=== PATIENT | male | born 1975 | race Caucasian/White ===

== ENCOUNTER 2021-02-27 00:28 | Emergency (ER) | payer OTHER, SELFPAY ==
[2021-02-27] VITALS (35 sets, daily range): BP systolic 92–124; BP diastolic 60–90; PULSE 69–162; RESP 8–22; TEMP 36.4; O2SAT 91–100; BMI 32.6
--- NOTE | 2021-02-27 00:49 | ECG_ITS ---
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 Measurements Intervals [place] Rate: 164 P: [place]: QRS: 32 QRSD: 90 T: 54 QT: 303 QTc: 501 Interpretive Statements ATRIAL FIBRILLATION WITH RAPID VENTRICULAR RESPONSE WITH ABERRANT CONDUCTION OR VENTRICULAR PREMATURE COMPLEXES MODERATE ST DEPRESSION [0.05+ mV ST DEPRESSION] No previous ECG available for comparison Electronically Signed On 02-28-2021 21:58:05 GASOLINE ATTENDANT by Israel Young M.D. [id number]
--- NOTE | 2021-02-27 00:49 | XRR_ITS ---
PROCEDURE INFORMATION: Exam: XR Chest Exam date and time: 02/27/2021 12:49 AM Age: 45 years old Clinical indication: Pain; Chest pressure; Additional info: Cp TECHNIQUE: Imaging protocol: XR of the chest. Views: 1 view. COMPARISON: MRI Thoracic Spine w/o* [id number] 03/14/2019 8:01 AM FINDINGS: Lungs: There are low lung volumes. Otherwise, the lungs are clear. Pleural spaces: Unremarkable. No pleural effusion. No pneumothorax. Heart/Mediastinum: Unremarkable. No cardiomegaly. Bones/joints: Unremarkable. XR/XR chest 1V portable [id number] IMPRESSION: There are low lung volumes. Otherwise, the lungs are clear. Radiation Dose CTDIVOL = (mGy): DLP = (mGy-cm)
[2021-02-27 01:19] LABS: Basophils % 0.5 %; Eosinophils # 0.2 10^3/uL (0.0-0.8); Eosinophils % 2.2 %; Hemoglobin 17.4 g/dL (11.7-16.6); Lymphocytes # 3.1 10^3/uL (0.8-4.8); Lymphocytes % 40.1 %; Mean Corpuscular HGB Conc 35.5 g/dL (30.0-36.0); Mean Corpuscular Hemoglobin 30.5 pg (28.0-34.0); Mean Corpuscular Volume 85.8 fl (80-94); Mean Platelet Volume 9.9 fL (7.4-10.4); Monocytes # 0.6 10^3/uL (0.2-0.9); Monocytes % 7.9 %; Neutrophils # 3.85 10^3/uL (1.8-7.7); Nucleated Red Blood Cells % 0 %; Platelet Count 263 10^3/cmm (130-400); Red Blood Count 5.71 10^6/uL (4.1-5.3); Red Cell Distribution Width 12.5 % (12.1-15.1); White Blood Count 7.8 10^3/uL (4.0-10.0)
--- NOTE | 2021-02-27 01:38 | W.ED.CHESTPA ---
HPI - Chest Pain General: Chief Complaint: Chest Pain Stated Complaint: Chest pains Time Seen by Provider: 02/27/21 00:48 History of Present Illness: HPI narrative: 45-year-old male with a history of hypertension. He had COVID-19 2 months ago, and received his first Covid 19 vaccine 2 weeks ago. Following that, he had an episode of atrial fibrillation for which she was seen at an outside facility. He converted prior to any medication being given, and was allowed home. He had chest pressure shortness of breath with that episode. He has not had any episodes until tonight. This evening he awoke from sleep again with chest pain and shortness of breath. He had some paresthesias to both upper extremities. He presents with an irregular heartbeat and a rate of 150 and above. MD complaint: chest pain Pertinent past history: other Onset (ago): hour(s) Timing of current episode: constant Prior episodes: Yes Onset: during rest and awoke with symptoms Pain location: substernal Pain radiation: right arm and left arm Severity: moderate Quality: tightness and aching Relieving factors: nothing Exacerbating factors: nothing Associated symptoms: Reports dyspnea, nausea and palpitations; Deny abdominal pain, diaphoresis, fever(s) or vomiting Treatment prior to arrival: none Review of Systems Const: Denies: fever(s) or diaphoresis Card: Reports: palpitations Resp: Reports: dyspnea GI: Reports: nausea; Denies: abdominal pain or vomiting Physical Exam Const: COMMON NORMALS: no acute distress, patient oriented x3 and alert HENMT: COMMON NORMALS: normocephalic HEAD & SCALP: normocephalic Eye: COMMON NORMALS: Equal, round and reactive pupils present PUPIL: Yes Equal, round and reactive pupils present Chest: COMMONS NORMALS: normal inspection of the chest Resp: COMMON NORMALS: normal respiratory effort, No use of accessory muscles and clear to auscultation bilaterally AUSCULTATION: clear to auscultation bilaterally Cardio: RATE: tachycardic RHYTHM: abnormal rhythm irregularly irregular GI: COMMON NORMALS: Normal to inspection, nondistended, normoactive bowel sounds present Extremity: COMMON NORMALS: no pedal edema Neuro: COMMON NORMALS: patient oriented x3 SENSORIUM/ORIENTATION: Yes alert Course Vital Signs: Vital signs: Vital Signs Temperature 97.5 F L 02/27/21 00:34 Pulse Rate 75 02/27/21 03:50 Respiratory Rate 13 02/27/21 03:50 Blood Pressure 114/77 02/27/21 03:50 Pulse Oximetry 95 02/27/21 03:50 MDM - Chest Pain MDM Narrative: Medical decision making narrative: 45-year-old male found to be in atrial fibrillation with RVR for the second time. He does have a history of hypertension. He was given a bolus of 15 mg of diltiazem with conversion to normal sinus rhythm with a normal rate. Upon, his pain resolved. He did not require further treatment. His second EKG showed a normal sinus rhythm with a normal axis, rate in the 70s, and no acute ST changes. His troponin remained 6 with a delta of 0. His other laboratory is benign. He states that the [place] has been working on getting him an appointment with a coin machine assembler. We will place a case management referral as well. He will go on a full dose of aspirin, and increase his metoprolol from 12.5 twice daily to 25 twice daily for rate control. Lab Data: Labs: Lab Results 02/27/21 02/27/21 02/27/21 01:00 01:00 01:00 WBC 7.8 10^3/uL 10^3/ uL (4.0-10.0) RBC 5.71 10^6/uL H 10 ^6/uL (4.1-5.3) Hgb 17.4 g/dL H g/dL (11.7-16.6) Hct 49.0 % % (42.0-52.0) MCV 85.8 fl fl (80-94) MCH 30.5 pg pg (28.0-34.0) MCHC 35.5 g/dL g/dL (30.0-36.0) RDW 12.5 % % (12.1-15.1) Plt Count 263 10^3/cmm 10^3 /cmm (130-400) MPV 9.9 fL fL (7.4-10.4) Neut % (Auto) 49.0 % % Lymph % (Auto) 40.1 % % [place] % (Auto) 7.9 % % Eos % (Auto) 2.2 % % Baso % (Auto) 0.5 % % Neut # (Auto) 3.85 10^3/uL 10^3 /uL (1.8-7.7) Lymph # (Auto) 3.1 10^3/uL 10^3/ uL (0.8-4.8) [place] # (Auto) 0.6 10^3/uL 10^3/ uL (0.2-0.9) Eos # (Auto) 0.2 10^3/uL 10^3/ uL (0.0-0.8) Baso # (Auto) 0.0 10^3/uL 10^3/ uL (0.0-0.1) Nucleated RBC % (a uto) 0 % % Nucleated RBCs # 0.0 /100WBC /100W BC PT 13.30 SECONDS SEC ONDS (12.1-14.9) INR 0.98 (0.8-1.2) APTT 29.1 SECONDS SECO NDS (23.9-36.7) D-Dimer <= 0.27 ug/mIFEU ug/mIFEU (0-0.59) Sodium 139 mmol/L mmol/L (136-145) Potassium 4.0 mmol/L mmol/L (3.5-5.1) Chloride 98 mmol/L mmol/L (98-107) Carbon Dioxide 23 mmol/L mmol/L (22-29) Anion Gap 22.0 H (5-19) BUN 20 mg/dL mg/dL (6-20) Creatinine 1.1 mg/dL mg/dL (0.7-1.2) GFR Calculation 73.1 mL/min L mL/ min (90-130) Glucose 90 mg/dL mg/dL (65-115) Calculated Osmolal ity 290 mOsm/kg mOsm/ kg (285-295) Calcium 9.7 mg/dL mg/dL (8.5-10.5) Magnesium 2.1 mg/dL mg/dL (1.7-2.3) Total Bilirubin 0.4 mg/dL mg/dL (0.15-1.2) AST 23 U/L U/L (0-40) ALT 37 U/L U/L (0-41) Alkaline Phosphata se 73 IU/L IU/L (40-130) Creatine Kinase 218 U/L U/L (39-308) Troponin T Baselin e Troponin T 120 Min rhiannon Delta Troponin T NT-Pro-B Natriuret Pep 20 pg/mL pg/mL (0-125) Total Protein 7.5 g/dL g/dL (6.6-8.7) Albumin 4.6 g/dL g/dL (3.5-5.2) Globulin 2.9 g/dL g/dL (1.3-4.6) TSH 2.79 uIU/mL uIU/m L (0.27-4.20) 02/27/21 02/27/21 01:00 02:43 WBC RBC Hgb Hct MCV MCH MCHC RDW Plt Count MPV Neut % (Auto) Lymph % (Auto) [place] % (Auto) Eos % (Auto) Baso % (Auto) Neut # (Auto) Lymph # (Auto) [place] # (Auto) Eos # (Auto) Baso # (Auto) Nucleated RBC % (a uto) Nucleated RBCs # PT INR APTT D-Dimer Sodium Potassium Chloride Carbon Dioxide Anion Gap BUN Creatinine GFR Calculation Glucose Calculated Osmolal ity Calcium Magnesium Total Bilirubin AST ALT Alkaline Phosphata se Creatine Kinase Troponin T Baselin e 6 ng/L ng/L (0-15) Troponin T 120 Min rhiannon 6.00 ng/L ng/L (0-15) Delta Troponin T 0 ABS# ABS# (0-10) NT-Pro-B Natriuret Pep Total Protein Albumin Globulin TSH Discharge Plan Discharge Patient Disposition: Home Clinical Impression: Atrial fibrillation Qualifiers: Atrial fibrillation type: paroxysmal Qualified Code(s): I48.0 - Paroxysmal atrial fibrillation Condition: Stable Prescriptions: New aspirin 325 mg tablet 325 mg PO DAILY Qty: 30 RF: 0 metoprolol tartrate 25 mg tablet 25 mg PO BID Qty: 60 RF: 0 Discharge Orders: Discharge ED (Routine); Ordered 02/27/21 Ordered By: Casey Alexandra Discharge Diet: Advance as tolerated Discharge Activity: Increase activity as tolerated Patient Instructions: A-fib (Atrial Fibrillation) (ED) Activity Restrictions/Additional Instructions: Return for return of palpitations, chest discomfort, shortness of breath, etc. Double your home metoprolol dose as we discussed. A case management referral has been placed for you an appointment with cardiology. If you do not hear from them by Monday afternoon call [phone] and ask for the ER pillowcase sewer. Coding Level of Care Code ED Drop Hammer Operator Helper for Chg Fwd Exam Comprehensive
[2021-02-27 01:46] LABS: INR 0.98 (0.8-1.2)
[2021-02-27 01:47] LABS: Partial Thromboplastin Time 29.1 SECONDS (23.9-36.7)
[2021-02-27 01:49] LABS: D Dimer <= 0.27 ug/mIFEU (0-0.59)
[2021-02-27 01:52] LABS: Troponin(5th) Baseline 6 ng/L (0-15)
[2021-02-27 01:56] LABS: Alanine Aminotransferase 37 U/L (0-41); Albumin Level 4.6 g/dL (3.5-5.2); Alkaline Phosphatase 73 IU/L (40-130); Aspartate Amino Transferase 23 U/L (0-40); Blood Urea Nitrogen 20 mg/dL (6-20); Calcium 9.7 mg/dL (8.5-10.5); Carbon Dioxide 23 mmol/L (22-29); Chloride 98 mmol/L (98-107); Creatine Phosphokinase 218 U/L (39-308); Globulin 2.9 g/dL (1.3-4.6); Glomerular Filtration Rate 73.1 mL/min (90-130); Glucose 90 mg/dL (65-115); Magnesium 2.1 mg/dL (1.7-2.3); NT Pro B Type Natriuretic Pept 20 pg/mL (0-125); Osmolality Calculated 290 mOsm/kg (285-295); Sodium 139 mmol/L (136-145); Thyroid Stimulating Hormone 2.79 uIU/mL (0.27-4.20); Total Bilirubin 0.4 mg/dL (0.15-1.2); Total Protein 7.5 g/dL (6.6-8.7)
--- NOTE | 2021-02-27 02:49 | ECG_ITS ---
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 Measurements Intervals [place] Rate: 81 P: 33 [place]: 169 QRS: 35 QRSD: 88 T: 43 QT: 370 QTc: 432 Interpretive Statements SINUS RHYTHM No previous ECG available for comparison Electronically Signed On 02-28-2021 22:00:33 CLINICAL STAFF EDUCATOR by Israel Young M.D. [id number]
--- NOTE | 2021-02-27 02:57 | PC.NURSE ---
Pt. states that he is feeling better and is pain free. Pt. now waiting to go home if his troponin is normal.
[2021-02-27 03:39] LABS: Troponin 5 2HR Delta 0 ABS# (0-10)
== END 2021-02-27 04:11 | disposition home or self-care (01) ==
PROVIDERS: Emergency Provider Emergency Medicine
DX: I48.0 Paroxysmal atrial fibrillation (principal)
CPT/HCPCS: 71045; 80053; 82550; 83735; 83880; 84443; 84484; 85025; 85378; 85610; 85730; 93005; 96374; 99284; J3490

== ENCOUNTER 2021-06-17 12:50 | Outpatient (CLI) | payer OTHER, SELFPAY ==
--- NOTE | 2021-06-17 13:30 | USCV_ITS ---
[place] Age: 45 Gender: M : 1975 Exam Date: 06/17/2021 13:04 Ordering Phys: Bhavana Wharton MD ([email or web address]) Technologist: DEMETRA Exam Location: [facility] [place] Indication: afib BP: 122 / 88 HR: 56 Rhythm: Sinus Technical Quality: Adequate MEASUREMENTS (Male / Female) Normal Values 2D ECHO LV Diastolic Diameter PLAX 2.9 cm 4.2 - 5.9 / 3.9 - 5.3 cm LV Systolic Diameter PLAX 1.9 cm IVS Diastolic Thickness 1.1 cm 0.6 - 1.0 / 0.6 - 0.9 cm IVS Systolic Thickness 1.1 cm LVPW Diastolic Thickness 1.6 cm 0.6 - 1.0 / 0.6 - 0.9 cm LVPW Systolic Thickness 1.5 cm LVOT Diameter 2.0 cm LV Ejection Fraction 2D Teich 64.0 % LV Ejection Fraction MOD 2C 57.3 % LV Ejection Fraction 2C AL 57.2 % LA Diameter 3.3 cm LA Width 3.6 cm LA Height 4.5 cm RA Width 2.9 cm RA Height 4.6 cm Aorta at Sinotubular Diameter 2.5 cm M-MODE Aortic Annulus Diameter 2.9 cm LA Ao Ratio MM 1.1 MV E Point Septal Separation 0.4 cm DOPPLER AV Peak Velocity 113.0 cm/s LVOT Peak Velocity 102.0 cm/s AV Area Cont Eq vti 2.7 cm squared AV Area Cont Eq pk 2.8 cm squared MV Area PHT 4.8 cm squared Mitral E to A Ratio 1.3 MV E' Velocity 39.0 cm/s Mitral E to MV E' Ratio 1.7 Mitral E to LV E' Lateral Ratio 5.5 Mitral E to LV E' Septal Ratio 1.0 TR Peak Velocity 230.0 cm/s TR Peak Gradient 21.2 mmHg TR Mean Velocity 163.0 cm/s TR Mean Gradient 10.5 mmHg TR Velocity Time Integral 48.2 cm Right Atrial Pressure 3.0 mmHg Pulmonary Artery Systolic Pressu 24.2 mmHg RV Acceleration Time 0.1 s RV Ejection Time 0.3 s RV AcT/ET 0.3 FINDINGS Left Ventricle Normal left ventricular size. LV systolic function is normal with EF of 55-60%. No regional wall motion abnormalities. Normal diastolic filling pattern. Right Ventricle The right ventricle is normal in size and function. Right Atrium The right atrium is normal in size. Left Atrium The left atrium is normal in size. Mitral Valve Structurally normal mitral valve without significant stenosis or prolapse. There is trace mitral regurgitation. Aortic Valve Structurally normal aortic valve without significant sclerosis or stenosis. There is no aortic regurgitation. Tricuspid Valve Structurally normal tricuspid valve without significant stenosis. Mild tricuspid regurgitation. Insufficient TR jet to calculate RVSP Pulmonic Valve Structurally normal pulmonic valve without significant stenosis. There is no pulmonic regurgitation. Pericardium Normal pericardium without effusion. Aorta Normal ascending aorta dimension. CONCLUSIONS LV systolic function is normal with EF of 55-60% Normal diastolic function Trace mitral regurgitation Mild tricuspid regurgitation No comparison studies are available Israel Young MD (Electronically Signed) Final Date: 26 June 2021 11:26 S
== END 2021-06-17 12:51 | disposition home or self-care (01) ==
LOC: RAD 12:52
PROVIDERS: PCP Nurse Practitioner; Visit Provider Internal Medicine Cardiovascular Disease
DX: R06.02 Shortness of breath (principal); R07.9 Chest pain, unspecified; I48.91 Unspecified atrial fibrillation; I08.1 Rheumatic disorders of both mitral and tricuspid valves
CPT/HCPCS: 93306

== ENCOUNTER → 2021-07-01 14:48 | Outpatient (BNVA) | payer OTHER, SELFPAY | PROVIDERS: PCP Nurse Practitioner; Visit Provider Internal Medicine | DX: R07.9 Chest pain, unspecified (principal); I48.0 Paroxysmal atrial fibrillation; I10 Essential (primary) hypertension | CPT/HCPCS: 99214 ==

== ENCOUNTER 2023-09-01 10:40 | Outpatient (CLI) | payer OTHER, SELFPAY ==
--- NOTE | 2023-09-01 10:44 | MR_ITS ---
WS: [id number] MRI HEAD WITHOUT CONTRAST TECHNIQUE: Sagittal T1, T2 axial, T2 axial FLAIR, axial and coronal T1 images, axial susceptibility w eighted imaging, axial diffusion weighted images, and coronal T2 images were obtained. CLINICAL INFORMATION: HEADACHES COMPARISON: None. FINDINGS: No evidence of restricted diffusion to suggest acute ischemia. Ventricular system and basilar cistern s are patent. Normal posterior fossa. Normal vascular flow voids at the skull base. No extra-axial fl uid collections. No mass or mass effect. Paranasal sinuses and mastoid air cells are well aerated. Normal posterior nasopharynx. Normal optic chiasm and pituitary infundibulum. Temporal lobes and hippocampal formations are normal in appearance. No hemosiderin on the susceptibility weighted images. MR/MR head wo con* [id number] IMPRESSION: 1. No evidence of restricted diffusion to suggest acute ischemia. 2. No suspicious intracranial signal abnormalities. 3. No hemosiderin on the susceptibly weighted imaging. 4. No other suspicious findings.
== END 2023-09-01 10:41 | disposition home or self-care (01) ==
LOC: RAD 10:40
PROVIDERS: PCP Nurse Practitioner; Visit Provider Nurse Practitioner
DX: R51.9 Headache, unspecified (principal)
CPT/HCPCS: 70551

== ENCOUNTER 2024-04-15 20:00 | Outpatient (CLI) | payer OTHER, SELFPAY | END 2024-04-15 20:01 | disposition home or self-care (01) | LOC: SLEEP 23:00 | PROVIDERS: PCP Nurse Practitioner; Visit Provider Nurse Practitioner | DX: G47.33 Obstructive sleep apnea (adult) (pediatric) (principal) | CPT/HCPCS: 95810 ==

== ENCOUNTER 2024-05-19 17:52 | Emergency (ER) | payer OTHER, SELFPAY ==
[2024-05-19 17:58] VITALS: BP 128/72; PULSE 66; RESP 16; TEMP 37; O2SAT 96; BMI 31.9
--- NOTE | 2024-05-19 18:28 | ECG_ITS ---
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
[2024-05-19 19:34] LABS: Basophils % 0.2 %; Eosinophils # 0.2 10^3/uL (0.0-0.8); Eosinophils % 2.3 %; Hematocrit 42.4 % (37-53); Lymphocytes # 2.4 10^3/uL (0.8-4.8); Lymphocytes % 29.6 %; Mean Corpuscular HGB Conc 34.4 g/dL (30-55); Mean Corpuscular Hemoglobin 29.9 pg (27-33); Mean Corpuscular Volume 86.7 fl (82-101); Mean Platelet Volume 9.2 fL (7.4-10.4); Monocytes # 0.4 10^3/uL (0.2-0.9); Monocytes % 4.6 %; Neutrophils # 5.17 10^3/uL (1.8-7.7); Neutrophils % 62.9 %; Nucleated Red Blood Cells % 0 %; Platelet Count 174 10^3/cmm (157-399); Red Blood Count 4.89 10^6/uL (3.85-5.65); Red Cell Distribution Width 13.2 % (12.1-15.1); White Blood Count 8.23 10^3/uL (3.29-11.43)
--- NOTE | 2024-05-19 19:48 | XRR_ITS ---
PROCEDURE INFORMATION: Exam: XR Chest Exam date and time: 05/19/2024 7:53 PM Age: 48 years old Clinical indication: Chest pressure; Patient HX: Chest pain TECHNIQUE: Imaging protocol: Radiologic exam of the chest. Views: 1 view. COMPARISON: CR XR chest 1V portable [id number] 02/27/2021 1:00 AM FINDINGS: Lungs: Unremarkable. No consolidation. Pleural spaces: Unremarkable. No pleural effusion. No pneumothorax. Heart/Mediastinum: Unremarkable. No cardiomegaly. Bones/joints: Unremarkable. XR/XR chest 1V portable [id number] IMPRESSION: No acute findings.
[2024-05-19 19:56] VITALS: BP 127/85; PULSE 67; RESP 22; O2SAT 99
[2024-05-19 19:57] LABS: Troponin(5th) Baseline < 6 ng/L (0-15)
--- NOTE | 2024-05-19 19:58 | W.ED.CHESTPA ---
HPI - Chest Pain General: Chief Complaint: Chest Pain Stated Complaint: chest pains Time Seen by Provider: 05/19/24 19:46 History of Present Illness: Patient is a 48-year-old male with history of hypertension, hypothyroid. Patient states that he has been having a left upper chest discomfort that has been going on approximately 2 weeks. Patient states it is in 1 spot just left of sternum. It has been coming and going over the past 2 weeks but over the past week it started kind of going up into the left shoulder. It does not go into the arm and does not go into the back. He states the past 2 days he has had what he describes as a pinch sensation. He states there is a pinch on the left chest and 1 spot and he sometimes kind of feels it into the left back. He has felt a little bit short of breath today when he has the pain. It does not typically last very long. No lightheadedness, no nausea or vomiting. No known history of cardiac issues. Patient heart rate normal, satting 96% on room air, no work of breathing, normal blood pressure Related Data Home Medications Medication Instructions Recorded Confirmed cyclobenzaprine 10 mg tablet 10 mg PO TID PRN 03/29/21 04/24/24 hydrocodone 10 mg-acetaminophen 1 tab PO Q6H PRN 03/29/21 04/24/24 325 mg tablet levothyroxine 75 mcg capsule 75 mcg PO DAILY 03/29/21 04/24/24 metoprolol tartrate 25 mg tablet 12.5 mg PO BID 03/29/21 04/24/24 multivitamin 1 tab PO DAILY 03/29/21 04/24/24 aspirin 325 mg tablet 162.5 mg PO DAILY 07/01/21 04/24/24 escitalopram oxalate 20 mg tablet 20 mg PO DAILY 07/01/21 04/24/24 (Lexapro) Previous Rx's Medication Instructions Recorded amoxicillin 500 mg capsule 500 mg PO TID #30 caps 04/24/24 Allergies Allergy/AdvReac Type Severity Reaction Status Date / Time morphine Allergy Unknown Unknown Verified 05/19/24 17:58 [facility] ED [facility]: Medical History Hyperlipidemia HTN (hypertension) Atrial fibrillation Family History Other Dementia Social History Smoking and tobacco/nicotine status: never used tobacco/nicotine Alcohol intake: never Substance/Drug Use: never Physical Exam Const: COMMON NORMALS: no acute distress, patient oriented x3 and alert GENERAL APPEARANCE: cooperative HENMT: COMMON NORMALS: normocephalic and atraumatic HEAD & SCALP: normocephalic and atraumatic Eye: COMMON NORMALS: Equal, round and reactive pupils present and EOMs intact bilaterally PUPIL: Yes Equal, round and reactive pupils present Neck/C-Spine: COMMON NORMALS: full ROM and supple Chest: COMMONS NORMALS: normal inspection of the chest Resp: COMMON NORMALS: normal respiratory effort and clear to auscultation bilaterally AUSCULTATION: clear to auscultation bilaterally Cardio: COMMON NORMALS: regular rate and regular rhythm RATE: regular rate RHYTHM: regular rhythm GI: COMMON NORMALS: Normal to inspection, nondistended, normoactive bowel sounds present and non-tender : COMMON NORMALS: Yes no CVA tenderness BLADDER/KIDNEY EXAM: Yes no CVA tenderness Back/Pelvis: COMMON NORMALS: no CVA tenderness and thoracic and lumbar spine normal to inspection Extremity: COMMON NORMALS: normal to inspection, full ROM and no pedal edema Neuro: COMMON NORMALS: patient oriented x3 and no focal motor deficits SENSORIUM/ORIENTATION: Yes alert Psych: COMMON NORMALS: cooperative Skin: COMMON NORMALS: no rashes or lesions noted GENERAL SKIN EXAM: no rashes or lesions noted Course Vital Signs: Vital signs: Vital Signs Temperature 98.6 F 05/19/24 17:58 Pulse Rate 68 05/19/24 20:49 Respiratory Rate 17 05/19/24 20:49 Blood Pressure 124/89 05/19/24 20:49 Pulse Oximetry 93 05/19/24 20:49 Oxygen Delivery Me thod Room Air 05/19/24 20:49 MDM - Chest Pain Medical Decision Making Patient has been having off-and-on minor chest discomfort for about 2 weeks. Patient having a pinching sensation and pain, shooting to the left shoulder. Patient's pain seems most consistent with a noncardiac process such as like inflammation. Patient has no family history of heart disease. Patient heart rate 60, satting 99% with normal blood pressure. Chest x-ray is clear, troponin is negative. Patient's been having pain most of today and yesterday so no benefit noted in getting a 2-hour troponin. Patient states he can call his primary doctor and follow-up. Advised that he would benefit from follow-up for possible stress testing. Have given him return precautions. Lab Data 05/19/24 18:43 05/19/24 18:43 Radiology Impressions Chest X-Ray 05/19/24 19:48 IMPRESSION: No acute findings. Laboratory Results WBC 8.23 10^3/uL (3.29-11.43) 05/19/24 18:43 RBC 4.89 10^6/uL (3.85-5.65) 05/19/24 18:43 Hgb 14.60 g/dL (11.27-16.99) 05/19/24 18:43 Hct 42.4 % (37-53) 05/19/24 18:43 MCV 86.7 fl (82-101) 05/19/24 18:43 MCH 29.9 pg (27-33) 05/19/24 18:43 MCHC 34.4 g/dL (30-55) 05/19/24 18:43 RDW 13.2 % (12.1-15.1) 05/19/24 18:43 Plt Count 174 10^3/cmm (157-399) 05/19/24 18:43 MPV 9.2 fL (7.4-10.4) 05/19/24 18:43 Neut % (Auto) 62.9 % 05/19/24 18:43 Lymph % (Auto) 29.6 % 05/19/24 18:43 [place] % (Auto) 4.6 % 05/19/24 18:43 Eos % (Auto) 2.3 % 05/19/24 18:43 Baso % (Auto) 0.2 % 05/19/24 18:43 Neut # (Auto) 5.17 10^3/uL (1.8-7.7) 05/19/24 18:43 Lymph # (Auto) 2.4 10^3/uL (0.8-4.8) 05/19/24 18:43 [place] # (Auto) 0.4 10^3/uL (0.2-0.9) 05/19/24 18:43 Eos # (Auto) 0.2 10^3/uL (0.0-0.8) 05/19/24 18:43 Baso # (Auto) 0.0 10^3/uL (0.0-0.1) 05/19/24 18:43 Nucleated RBC % (auto) 0 % 05/19/24 18:43 Nucleated RBCs # 0.0 /100WBC 05/19/24 18:43 Sodium 139 mmol/L (136-145) 05/19/24 18:43 Potassium 4.1 mmol/L (3.5-5.1) 05/19/24 18:43 Chloride 101 mmol/L (98-107) 05/19/24 18:43 Carbon Dioxide 23 mmol/L (22-29) 05/19/24 18:43 Anion Gap 19.1 (5-19) H 05/19/24 18:43 BUN 17 mg/dL (6-20) 05/19/24 18:43 Creatinine 1.1 mg/dL (0.7-1.2) 05/19/24 18:43 GFR Calculation 72.1 mL/min (90-130) L 05/19/24 18:43 Glucose 128 mg/dL (65-115) H 05/19/24 18:43 Calculated Osmolality 291 mOsm/kg (285-295) 05/19/24 18:43 Calcium 8.7 mg/dL (8.5-10.5) 05/19/24 18:43 Total Bilirubin 0.4 mg/dL (0.15-1.2) 05/19/24 18:43 AST 22 U/L (0-40) 05/19/24 18:43 ALT 26 U/L (0-41) 05/19/24 18:43 Alkaline Phosphatase 71 U/L (40-130) 05/19/24 18:43 Troponin T Baseline < 6 ng/L (0-15) 05/19/24 18:43 NT-Pro-B Natriuret Pep < 36 pg/mL (0-125) 05/19/24 18:43 Total Protein 6.5 g/dL (6.6-8.7) L 05/19/24 18:43 Albumin 4.3 g/dL (3.5-5.2) 05/19/24 18:43 Globulin 2.2 g/dL (1.3-4.6) 05/19/24 18:43 XR interpretation done by ED provider, pending radiology final review ED provider radiology interpretation(s): No acute process noted Discharge Plan Discharge Patient Disposition: Home Clinical Impression: Nonspecific chest pain Condition: Stable Prescriptions: No Action levothyroxine 75 mcg capsule 75 mcg PO DAILY hydrocodone-acetaminophen 10-325 mg tablet 1 tab PO Q6H PRN cyclobenzaprine 10 mg tablet 10 mg PO TID PRN multivitamin Tablet 1 tab PO DAILY metoprolol tartrate 25 mg tablet 12.5 mg PO BID escitalopram oxalate [Lexapro] 20 mg tablet 20 mg PO DAILY aspirin 325 mg tablet 162.5 mg PO DAILY amoxicillin 500 mg capsule 500 mg PO TID Qty: 30 0RF Discharge Orders: Discharge ED (Routine); Ordered 05/19/24 Ordered By: Lorenzo Smith Referrals: Nat Cody, PHARMACOLOGY ASSOCIATE [Primary Care Provider] - Discharge Diet: Usual diet Discharge Activity: Resume usual activity Patient Instructions: Chest Pain (ED) Coding Level of Care Code ED Hide Examiner for Anjelica Curry
--- NOTE | 2024-05-19 19:59 | ECG_ITS ---
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
[2024-05-19 20:02] LABS: Alanine Aminotransferase 26 U/L (0-41); Albumin Level 4.3 g/dL (3.5-5.2); Alkaline Phosphatase 71 U/L (40-130); Aspartate Amino Transferase 22 U/L (0-40); Blood Urea Nitrogen 17 mg/dL (6-20); Calcium 8.7 mg/dL (8.5-10.5); Carbon Dioxide 23 mmol/L (22-29); Chloride 101 mmol/L (98-107); Creatinine Clr Calc Pharmacy 93.9307; Globulin 2.2 g/dL (1.3-4.6); Glomerular Filtration Rate 72.1 mL/min (90-130); Glucose 128 mg/dL (65-115); NT Pro B Type Natriuretic Pept < 36 pg/mL (0-125); Osmolality Calculated 291 mOsm/kg (285-295); Sodium 139 mmol/L (136-145); Total Bilirubin 0.4 mg/dL (0.15-1.2); Total Protein 6.5 g/dL (6.6-8.7)
[2024-05-19 20:05] LABS: Anion Gap 19.1 (5-19); Potassium 4.1 mmol/L (3.5-5.1)
[2024-05-19 20:49] VITALS: BP 124/89; PULSE 68; RESP 17; O2SAT 93
[2024-05-19 21:21] VITALS: BP 116/72; PULSE 95; RESP 19; O2SAT 96
== END 2024-05-19 21:22 | disposition home or self-care (01) ==
PROVIDERS: Emergency Medicine; Emergency Provider Emergency Medicine; PCP Nurse Practitioner
DX: R07.89 Other chest pain (principal); E78.5 Hyperlipidemia, unspecified; I10 Essential (primary) hypertension
CPT/HCPCS: 12345; 36415; 71045; 80053; 83880; 84484; 85025; 93005; 99285

== ENCOUNTER → 2024-08-29 14:38 | Outpatient (BNVA) | payer OTHER, SELFPAY | PROVIDERS: PCP Nurse Practitioner; Visit Provider Internal Medicine Cardiovascular Disease | DX: R07.9 Chest pain, unspecified (principal) | CPT/HCPCS: 93005 ==

== ENCOUNTER → 2025-02-27 14:45 | Outpatient (BNVA) | payer OTHER, SELFPAY | PROVIDERS: PCP Nurse Practitioner; Visit Provider Internal Medicine Cardiovascular Disease | DX: I48.0 Paroxysmal atrial fibrillation (principal); I10 Essential (primary) hypertension; R25.2 Cramp and spasm; G43.909 Migraine, unspecified, not intractable, without status migrainosus | CPT/HCPCS: 99214 ==